=== PATIENT | female | born 1955 | race Caucasian/White ===

== ENCOUNTER → 2019-01-21 | Outpatient (CLI) | payer OTHER ==
--- NOTE | 2019-01-21 11:16 | PCVCIMAG ---
APPROVED REPORT Study performed: 01/21/2019 10:01:37 EXAM: Comprehensive 2D, Doppler, and color-flow Echocardiogram Patient Location: Echo lab Status: routine BSA: 1.91 HR: 92 bpmBP: 140/90 mmHg Rhythm: NSR Other Information Study Quality: Technically Difficult Risk Factors: Cardiac Risk Factors: HTN, Diabetes (insulin) Indications CVA/TIA 2D Dimensions IVSd: 18.44 (7-11mm) LVDd: 39.52 mm PWd: 12.41 (7-11mm)Ascending Ao: 35.36 (22-36mm) LVDs: 32.56 (25-40mm) Left Atrium: 40.57 (27-40mm) Aortic Root: 25.32 mm LV Single Plane 4CH: 43.81 % LV Single Plane 2CH: 58.98 % Volumes Left Atrial Volume (Systole) Single Plane 4CH: 36.39 mLSingle Plane 2CH: 31.96 mL LA ESV Index: 18.00 mL/m2 Aortic Valve AoV Peak William.: 1.54 m/s AO Peak Gr.: 9.47 mmHg Mitral Valve E/A Ratio: 0.7 MV Decel. Time: 311.62 ms MV E Max William.: 0.70 m/s MV A William.: 0.97 m/s TDI E/Lateral E': 7.00E/Medial E': 10.00 Medial E' William.: 0.07 m/s Lateral E' William.: 0.10 m/s Pulmonary Valve PV Peak Gr.: 2.41 mmHg Pulmonary Vein P Vein S: 0.55 m/sP Vein A: 0.38 m/s P Vein D: 0.33 m/sP Vein A Dur.: 117.6 msec P Vein S/D Ratio: 1.67 Left Ventricle The left ventricle is normal size. There is normal LV segmental wall motion. Mild concentric left ventricular hypertrophy. Left ventricular systolic function is normal. The left ventricular ejection fraction is within the normal range. LVEF is 55-60%. Grade I - abnormal relaxation pattern. Right Ventricle The right ventricle is normal size. The right ventricular systolic function is normal. Atria The left atrium size is normal. The right atrium size is normal. Aortic Valve The aortic valve is normal in structure. No aortic regurgitation is present. There is no aortic valvular stenosis. Mitral Valve The mitral valve is normal in structure. There is no mitral valve regurgitation noted. No evidence of mitral valve stenosis. Tricuspid Valve The tricuspid valve is normal in structure. There is no tricuspid valve regurgitation noted. Pulmonic Valve The pulmonary valve is normal in structure. There is no pulmonic valvular regurgitation. Great Vessels The aortic root is normal in size. IVC is normal in size and collapses >50% with inspiration. Pericardium There is no pericardial effusion. <Conclusion> The left ventricle is normal size. LVEF is 55-60%. The aortic valve is normal in structure. The mitral valve is normal in structure. The tricuspid valve is normal in structure. The pulmonary valve is normal in structure. There is no pericardial effusion.
== END | disposition home or self-care (01) ==
LOC: PCVCIMAG 10:01
PROVIDERS: ATTEND Internal Medicine
DX: I63.9 Cerebral infarction, unspecified (principal); I10 Essential (primary) hypertension; Z86.73 Personal history of transient ischemic attack (TIA), and cerebral infarction without residual deficits
CPT/HCPCS: 93306